=== PATIENT | male | born 1955 | race American Indian/Alaskan Native ===

== ENCOUNTER → 2019-01-04 | Outpatient (CLI) | payer OTHER, MEDICARE ==
[~2019-01-04] MED LIST: ACET250; CIPR500 PO; CITA20 PO; ERGO50000 PO; ESCI10; FROVA PO; HYDACE5 PO; NABU500; NAPR500 PO; NEOPOLHCSU AD; NORT10; NORT25 PO; OMEP20ER; OXYACE5T PO; OXYACE7.5T; PENVK500 PO; PROM25 PO; SERT100; SIMV10 PO; TAMS.4ER PO; TEMA30; TOPI100 PO
== END | disposition home or self-care (01) ==
LOC: LAB 12:50 → LAB SHORT 12:50
DX: R73.9 Hyperglycemia, unspecified (principal)
CPT/HCPCS: 83036

== ENCOUNTER → 2019-02-15 | Outpatient (CLI) | payer OTHER, MEDICARE ==
[2019-02-15 16:47] LABS: Adenovirus F 40/41 Not Detected (NOT DETECT); Astrovirus Not Detected (NOT DETECT); Campylobacter Sp Not Detected (NOT DETECT); Cryptosporidium Not Detected (NOT DETECT); Cyclospora Cayetanensis Not Detected (NOT DETECT); E. Coli O157 Not Detected (NOT DETECT); Entamoeba Histolytica Not Detected (NOT DETECT); Enteroaggregative E. coli-EAEC Not Detected (NOT DETECT); Enteropathogenic E. coli-EPEC Not Detected (NOT DETECT); Enterotoxigenic E. coli-ETEC Not Detected (NOT DETECT); Giardia Lamblia Not Detected (NOT DETECT); Norovirus GI/GII Not Detected (NOT DETECT); Plesiomonas Shigelloides Not Detected (NOT DETECT); Rotavirus A Detected (NOT DETECT); Salmonella Sp Not Detected (NOT DETECT); Sapovirus Not Detected (NOT DETECT); Shiga Toxin-prod E. coli-STEC Not Detected (NOT DETECT); Shigella/Enteroin E. coli-EIEC Not Detected (NOT DETECT); Vibrio Cholerae Not Detected (NOT DETECT); Vibrio Sp Not Detected (NOT DETECT); Yersinia Enterocolitica Not Detected (NOT DETECT)
== END | disposition home or self-care (01) ==
LOC: LAB SHORT 12:39 → LAB 12:39
PROVIDERS: Internal Medicine Hematology & Oncology
DX: R19.7 Diarrhea, unspecified (principal)
CPT/HCPCS: 87507

== ENCOUNTER → 2019-05-24 | Outpatient (CLI) | payer OTHER, MEDICARE ==
[2019-05-24 13:25] LABS: Alanine Aminotransfer (ALT/SGP 22 U/L (12-78); Albumin, Blood 3.7 g/dL (3.4-5.0); Albumin/Globulin Ratio 0.9 (0.8-1.8); Alk Phos 133 U/L (50-136); Anion Gap 8 mmol/L (6-16); Aspartate Aminotrans (AST/SGOT 16 U/L (12-37); Bilirubin, Total 0.5 mg/dL (0.1-1.0); Blood Urea Nitrogen 7 mg/dL (8-24); Bun/Creatinine Ratio 9.8 (12.0-20.0); CO2, Blood 26 mmol/L (21-32); Calcium, Blood 9.2 mg/dL (8.5-10.1); Chloride, Blood 106 mmol/L (98-108); Creatinine, Blood 0.72 mg/dL (0.60-1.20); Globulin, Blood 3.9 g/dL (2.2-4.0); Glomerular Filtration Rate >60 (60-); Glucose, Blood 167 mg/dL (70-99); Potassium, Blood 3.8 mmol/L (3.5-5.5); Sodium, Blood 140 mmol/L (136-145); Total Protein, Blood 7.6 g/dL (6.4-8.2)
== END | disposition home or self-care (01) ==
LOC: LAB 12:46 → LAB SHORT 12:46
PROVIDERS: Otolaryngology
DX: R51 Headache (principal)
CPT/HCPCS: 80053

== ENCOUNTER → 2019-11-23 | Outpatient (CLI) | payer OTHER, MEDICARE ==
[2019-11-23 15:17] LABS: BASOPHILS ABSOLUTE AUTO 0.16 K/mm3 (0.00-0.23); BASOPHILS PERCENT AUTO 1 % (0-2); EOSINOPHILS ABSOLUTE AUTO 0.49 K/mm3 (0.00-0.68); EOSINOPHILS PERCENT AUTO 3 % (0-6); Hematocrit 46.2 % (37.0-53.0); Hemoglobin 15.6 g/dL (13.5-17.5); IMMATURE GRAN ABSOLUTE AUTO 0.07 K/mm3 (0.00-0.10); IMMATURE GRAN PERCENT AUTO 0 % (0-1); LYMPHOCYTES ABSOLUTE AUTO 3.07 K/mm3 (0.84-5.20); LYMPHOCYTES PERCENT AUTO 17 % (21-46); MONOCYTES ABSOLUTE AUTO 1.18 K/mm3 (0.16-1.47); MONOCYTES PERCENT AUTO 7 % (4-13); Mean Corpuscular HGB 29.1 pg (26.0-34.0); Mean Corpuscular HGB Conc 33.8 g/dL (31.5-36.5); Mean Corpuscular Volume 86 fL (80-100); NEUTROPHILS PERCENT AUTO 73 % (41-73); Platelet Count 339 K/mm3 (150-400); RDW Coefficient Variation 14.8 % (11.7-14.2); RDW Standard Deviation 46.9 fL (35.1-46.3); Red Blood Cell Count 5.37 M/mm3 (4.30-5.90); White Blood Cell Count 18.07 K/mm3 (4.00-11.30)
[2019-11-23 15:47] LABS: Valproic Acid 13.2 ug/mL (50.0-100.0)
[2019-11-23 15:48] LABS: Alanine Aminotransfer (ALT/SGP 31 U/L (12-78); Albumin, Blood 3.7 g/dL (3.4-5.0); Alk Phos 149 U/L (50-136); Anion Gap 7 mmol/L (6-16); Aspartate Aminotrans (AST/SGOT 23 U/L (12-37); Bilirubin, Total 0.5 mg/dL (0.1-1.0); Blood Urea Nitrogen 12 mg/dL (8-24); Bun/Creatinine Ratio 15.3 (12.0-20.0); CO2, Blood 24 mmol/L (21-32); Calcium, Blood 8.9 mg/dL (8.5-10.1); Chloride, Blood 105 mmol/L (98-108); Creatinine, Blood 0.78 mg/dL (0.60-1.20); Globulin, Blood 3.6 g/dL (2.2-4.0); Glomerular Filtration Rate >60 (60-); Glucose, Blood 221 mg/dL (70-99); Potassium, Blood 3.7 mmol/L (3.5-5.5); Sodium, Blood 136 mmol/L (136-145); Total Protein, Blood 7.3 g/dL (6.4-8.2)
== END ==
LOC: LAB SHORT 11:20 → LAB 11:20
PROVIDERS: Physician Assistant
DX: C85.98 Non-Hodgkin lymphoma, unspecified, lymph nodes of multiple sites (principal); G44.221 Chronic tension-type headache, intractable; G43.909 Migraine, unspecified, not intractable, without status migrainosus; F43.9 Reaction to severe stress, unspecified; G47.30 Sleep apnea, unspecified; G60.9 Hereditary and idiopathic neuropathy, unspecified; M54.2 Cervicalgia; Z79.899 Other long term (current) drug therapy
CPT/HCPCS: 80053; 80164; 85025

== ENCOUNTER → 2020-02-03 | Outpatient (CLI) | payer OTHER, MEDICARE ==
[2020-02-03 13:58] LABS: BASOPHILS ABSOLUTE AUTO 0.15 K/mm3 (0.00-0.23); BASOPHILS PERCENT AUTO 1 % (0-2); EOSINOPHILS ABSOLUTE AUTO 0.32 K/mm3 (0.00-0.68); EOSINOPHILS PERCENT AUTO 2 % (0-6); Hematocrit 48.2 % (37.0-53.0); Hemoglobin 16.4 g/dL (13.5-17.5); IMMATURE GRAN ABSOLUTE AUTO 0.04 K/mm3 (0.00-0.10); IMMATURE GRAN PERCENT AUTO 0 % (0-1); LYMPHOCYTES ABSOLUTE AUTO 5.77 K/mm3 (0.84-5.20); LYMPHOCYTES PERCENT AUTO 40 % (21-46); MONOCYTES ABSOLUTE AUTO 0.82 K/mm3 (0.16-1.47); MONOCYTES PERCENT AUTO 6 % (4-13); Mean Corpuscular HGB 28.9 pg (26.0-34.0); Mean Corpuscular Volume 85 fL (80-100); Mean Platelet Volume 11.1 fL (9.1-12.4); NEUTROPHILS ABSOLUTE AUTO 7.52 K/mm3 (1.96-9.15); NEUTROPHILS PERCENT AUTO 51 % (41-73); Platelet Count 362 K/mm3 (150-400); RDW Coefficient Variation 14.5 % (11.7-14.2); RDW Standard Deviation 44.6 fL (35.1-46.3); Red Blood Cell Count 5.68 M/mm3 (4.30-5.90); White Blood Cell Count 14.62 K/mm3 (4.00-11.30)
== END | disposition home or self-care (01) ==
LOC: LAB SHORT 11:30 → LAB 11:30
PROVIDERS: Internal Medicine Hematology & Oncology
DX: D75.1 Secondary polycythemia (principal)
CPT/HCPCS: 85025

== ENCOUNTER 2020-06-08 14:02 | Emergency (ER) | payer OTHER, MEDICARE ==
[~2020-06-08] VITALS: Ht 182.9 cm; Wt 95.2 kg
[~2020-06-08 14:02] MED LIST changes: +Citalopram HBr40 MG PO; +IMITREX100 MG PO; +NORTRIPTYLINE H50 MG PO; +OMEP20ER PO; +OXYCODONE-ACET1 EAC3 PO; +Simvastatin20 MG PO; +TAMSULOSIN HCL0.4 M1 PO; +Temazepam30 MG PO
[2020-06-08 14:44] LABS: BASOPHILS ABSOLUTE AUTO 0.13 K/mm3 (0.00-0.23); BASOPHILS PERCENT AUTO 1 % (0-2); EOSINOPHILS ABSOLUTE AUTO 0.26 K/mm3 (0.00-0.68); EOSINOPHILS PERCENT AUTO 2 % (0-6); Hematocrit 48.7 % (37.0-53.0); Hemoglobin 16.3 g/dL (13.5-17.5); IMMATURE GRAN ABSOLUTE AUTO 0.04 K/mm3 (0.00-0.10); IMMATURE GRAN PERCENT AUTO 0 % (0-1); LYMPHOCYTES ABSOLUTE AUTO 5.57 K/mm3 (0.84-5.20); LYMPHOCYTES PERCENT AUTO 33 % (21-46); MONOCYTES ABSOLUTE AUTO 0.95 K/mm3 (0.16-1.47); MONOCYTES PERCENT AUTO 6 % (4-13); Mean Corpuscular HGB 28.2 pg (26.0-34.0); Mean Corpuscular HGB Conc 33.5 g/dL (31.5-36.5); Mean Corpuscular Volume 84 fL (80-100); Mean Platelet Volume 11.9 fL (9.1-12.4); NEUTROPHILS ABSOLUTE AUTO 10.17 K/mm3 (1.96-9.15); NEUTROPHILS PERCENT AUTO 60 % (41-73); Platelet Count 299 K/mm3 (150-400); RDW Coefficient Variation 14.2 % (11.7-14.2); RDW Standard Deviation 43.8 fL (35.1-46.3); Red Blood Cell Count 5.77 M/mm3 (4.30-5.90); White Blood Cell Count 17.12 K/mm3 (4.00-11.30)
[2020-06-08 14:52] LABS: Base Excess Venous -2.8 mmol/L; Bicarbonate Venous 21.6 mmol/L (24.0-30.0); PCO2 Venous 44.8 mmHg (38-42); PO2 Venous 49.6 mmHg (38-42); pH Blood Venous 7.32 (7.34-7.37)
[2020-06-08 15:05] LABS: Alanine Aminotransfer (ALT/SGP 19 U/L (12-78); Albumin, Blood 3.7 g/dL (3.4-5.0); Albumin/Globulin Ratio 0.9 (0.8-1.8); Alk Phos 198 U/L (50-136); Anion Gap 8 mmol/L (6-16); Aspartate Aminotrans (AST/SGOT 11 U/L (12-37); Beta-hydroxybutyrate 1.5 mg/dL (0.2-2.8); Bilirubin, Total 0.4 mg/dL (0.1-1.0); Blood Urea Nitrogen 11 mg/dL (8-24); Bun/Creatinine Ratio 17.7 (12.0-20.0); CO2, Blood 24 mmol/L (21-32); Calcium, Blood 9.4 mg/dL (8.5-10.1); Chloride, Blood 101 mmol/L (98-108); Creatinine, Blood 0.62 mg/dL (0.60-1.20); Globulin, Blood 3.9 g/dL (2.2-4.0); Glomerular Filtration Rate >60 (60-); Glucose, Blood 576 mg/dL (70-99); Potassium, Blood 4.1 mmol/L (3.5-5.5); Sodium, Blood 133 mmol/L (136-145); Total Protein, Blood 7.6 g/dL (6.4-8.2)
[2020-06-08 15:51] LABS: Source, Urine Clean Catch
[2020-06-08 16:03] LABS: Appearance, Urine Clear (Clear); Bilirubin, Urine Neg (Neg); Blood, Urine Neg (Neg); Color, Urine Yellow (P-Yellow); Glucose Qualitative, Urine 4+ (Neg); Ketones, Urine Neg (Neg); Leukocyte Esterase, Urine Neg (Neg); Nitrite, Urine Neg (Neg); Protein, Urine Neg (Neg); Urobilinogen, Urine NORM (Normal)
[2020-06-08] MEDS ORDERED: METF500 PO (18:34)
== END 2020-06-08 18:35 | disposition home or self-care (01) ==
LOC: ER 14:02
PROVIDERS: Emergency Medicine
DX: E11.9 Type 2 diabetes mellitus without complications (principal); I10 Essential (primary) hypertension; E78.5 Hyperlipidemia, unspecified; F17.210 Nicotine dependence, cigarettes, uncomplicated; Z88.6 Allergy status to analgesic agent; Z88.5 Allergy status to narcotic agent; Z88.8 Allergy status to other drugs, medicaments and biological substances; Z79.899 Other long term (current) drug therapy
CPT/HCPCS: 36415; 80053; 81003; 82010; 82803; 82947; 85025; 99283

== ENCOUNTER → 2020-10-09 | Outpatient (CLI) | payer OTHER, MEDICARE ==
[~2020-10-09] MED LIST changes: +ACET250 PO; +FLAGYL500 M2 PO; +METF500 PO
[2020-10-09 15:44] LABS: BASOPHILS ABSOLUTE AUTO 0.17 K/mm3 (0.00-0.23); BASOPHILS PERCENT AUTO 1 % (0-2); EOSINOPHILS ABSOLUTE AUTO 1.36 K/mm3 (0.00-0.68); EOSINOPHILS PERCENT AUTO 7 % (0-6); Hematocrit 48.5 % (37.0-53.0); IMMATURE GRAN ABSOLUTE AUTO 0.03 K/mm3 (0.00-0.10); IMMATURE GRAN PERCENT AUTO 0 % (0-1); LYMPHOCYTES ABSOLUTE AUTO 6.77 K/mm3 (0.84-5.20); LYMPHOCYTES PERCENT AUTO 36 % (21-46); MONOCYTES ABSOLUTE AUTO 1.07 K/mm3 (0.16-1.47); MONOCYTES PERCENT AUTO 6 % (4-13); Mean Corpuscular HGB 28.4 pg (26.0-34.0); Mean Corpuscular Volume 86 fL (80-100); Mean Platelet Volume 11.3 fL (9.1-12.4); NEUTROPHILS PERCENT AUTO 50 % (41-73); Platelet Count 377 K/mm3 (150-400); RDW Coefficient Variation 14.9 % (11.7-14.2); RDW Standard Deviation 47.5 fL (35.1-46.3); Red Blood Cell Count 5.63 M/mm3 (4.30-5.90)
== END ==
LOC: LAB 15:37 → LAB SHORT 15:37
PROVIDERS: Internal Medicine Hematology & Oncology
DX: C83.07 Small cell B-cell lymphoma, spleen (principal); C82.83 Other types of follicular lymphoma, intra-abdominal lymph nodes; R74.8 Abnormal levels of other serum enzymes; I10 Essential (primary) hypertension
CPT/HCPCS: 85025

== ENCOUNTER 2020-12-24 08:37 | Day surgery (SDC) | payer OTHER, MEDICARE ==
[~2020-12-24] VITALS: Ht 182.9 cm; Wt 101.3 kg
[~2020-12-24 08:37] MED LIST changes: -ACET250 PO; -FLAGYL500 M2 PO
[2020-12-24] MEDS ORDERED: METF500 PO (09:01)
[2020-12-24] MEDS ORDERED: ACET250 PO (09:02)
[2020-12-24] MEDS ORDERED: FLAGYL500 M2 PO (09:02)
== END 2020-12-24 11:01 | disposition home or self-care (01) ==
LOC: ORSCSDS 08:37
PROVIDERS: Internal Medicine Gastroenterology
PROC: 0DB58ZX Excision of Esophagus, Via Natural or Artificial Opening Endoscopic, Diagnostic (ICD-10-PCS; principal; 2020-12-24 10:00)
PROC: 0DB78ZX Excision of Stomach, Pylorus, Via Natural or Artificial Opening Endoscopic, Diagnostic (ICD-10-PCS; principal; 2020-12-24 10:00)
PROC: 0DJD8ZZ Inspection of Lower Intestinal Tract, Via Natural or Artificial Opening Endoscopic (ICD-10-PCS; principal; 2020-12-24 10:00)
DX: K21.9 Gastro-esophageal reflux disease without esophagitis (principal); K22.70 Barrett's esophagus without dysplasia; K29.70 Gastritis, unspecified, without bleeding; Z12.11 Encounter for screening for malignant neoplasm of colon; Z86.010 Personal history of colon polyps; K57.30 Diverticulosis of large intestine without perforation or abscess without bleeding; F17.210 Nicotine dependence, cigarettes, uncomplicated; I10 Essential (primary) hypertension; E11.9 Type 2 diabetes mellitus without complications; G47.33 Obstructive sleep apnea (adult) (pediatric); Z79.899 Other long term (current) drug therapy
CPT/HCPCS: 43239; G0105; 82947; 87081; 88305; 88342; J2704; J7120

== ENCOUNTER → 2022-04-28 | Outpatient (CLI) | payer OTHER, MEDICARE ==
[~2022-04-28] MED LIST changes: +ACET250 PO; +FLAGYL500 M2 PO
[2022-04-28 11:38] LABS: U Amphetamine Screen Not Detected; U Barbituate Screen Not Detected; U Benzodiazapine Screen DETECTED; U Cannabinoids Screen DETECTED; U Methamphetamine Screen Not Detected; U Oxycodone Screen DETECTED
[2022-04-28 11:39] LABS: U Buprenorphine Screen Not Detected; U Cocaine Screen Not Detected; U Methadone Screen Not Detected; U Opiates Screen Not Detected; U Phencyclidine Screen Not Detected; U Propoxyphene Screen Not Detected
== END | disposition home or self-care (01) ==
LOC: LAB SHORT 09:36
PROVIDERS: Internal Medicine Hematology & Oncology
DX: Z51.81 Encounter for therapeutic drug level monitoring (principal); Z79.899 Other long term (current) drug therapy

== ENCOUNTER → 2022-05-29 | Outpatient (CLI) | payer OTHER, MEDICARE ==
[2022-05-29 11:56] LABS: U Amphetamine Screen Not Detected; U Barbituate Screen Not Detected; U Benzodiazapine Screen DETECTED; U Buprenorphine Screen Not Detected; U Cannabinoids Screen DETECTED; U Cocaine Screen Not Detected; U Methadone Screen Not Detected; U Methamphetamine Screen Not Detected; U Opiates Screen Not Detected; U Oxycodone Screen DETECTED; U Phencyclidine Screen Not Detected; U Propoxyphene Screen Not Detected
[2022-06-02 19:08] LABS: CARBOXY-THC 64 (.)
== END | disposition home or self-care (01) ==
LOC: LAB SHORT 08:54 → LAB 08:54
PROVIDERS: Internal Medicine Hematology & Oncology
DX: Z51.81 Encounter for therapeutic drug level monitoring (principal); Z79.899 Other long term (current) drug therapy

== ENCOUNTER → 2022-07-01 | Outpatient (CLI) | payer OTHER, MEDICARE ==
[2022-07-01 18:37] LABS: U Cannabinoids Screen DETECTED
[2022-07-01 18:38] LABS: U Benzodiazapine Screen DETECTED; U Oxycodone Screen DETECTED
[2022-07-01 18:40] LABS: U Amphetamine Screen Not Detected; U Barbituate Screen Not Detected; U Buprenorphine Screen Not Detected; U Cocaine Screen Not Detected; U Methadone Screen Not Detected; U Methamphetamine Screen Not Detected; U Opiates Screen Not Detected; U Phencyclidine Screen Not Detected; U Propoxyphene Screen Not Detected
[2022-07-07 07:12] LABS: AMITRIPTYLINE Negative (Cutoff=100); CLOMIPRAMINE Negative (Cutoff=100); CYCLOBENZAPRINE Negative (Cutoff=100); DESIPRAMINE Negative (Cutoff=100); DOXEPIN Negative (Cutoff=100); IMIPRAMINE Negative (Cutoff=100); NORDOXEPIN Negative (Cutoff=100); NORTRIPTYLINE Positive (.); NORTRIPTYLINE CONF 278 ng/mL (Cutoff=100); PROTRIPTYLINE Negative (Cutoff=100); TRICYCLIC ANTIDEP Positive ng/mL (Cutoff=100); TRIMIPRAMINE Negative (Cutoff=100)
[2022-07-08 14:09] LABS: CARBOXY-THC 148 (.)
== END ==
LOC: LAB SHORT 15:04 → LAB 15:04
PROVIDERS: Internal Medicine Hematology & Oncology
DX: Z79.899 Other long term (current) drug therapy (principal)
CPT/HCPCS: G0480; G0481

== ENCOUNTER → 2022-08-01 | Outpatient (CLI) | payer OTHER, MEDICARE ==
[2022-08-01 12:46] LABS: U Amphetamine Screen Not Detected; U Barbituate Screen Not Detected; U Methamphetamine Screen Not Detected
[2022-08-01 12:47] LABS: U Benzodiazapine Screen DETECTED; U Buprenorphine Screen Not Detected; U Cannabinoids Screen Not Detected; U Cocaine Screen Not Detected; U Methadone Screen Not Detected; U Opiates Screen Not Detected; U Oxycodone Screen DETECTED; U Phencyclidine Screen Not Detected; U Propoxyphene Screen Not Detected
== END | disposition home or self-care (01) ==
LOC: LAB SHORT 10:34 → LAB 10:34
PROVIDERS: Internal Medicine Hematology & Oncology
DX: Z51.81 Encounter for therapeutic drug level monitoring (principal); Z79.899 Other long term (current) drug therapy

== ENCOUNTER → 2022-11-27 | Outpatient (CLI) | payer OTHER, MEDICARE ==
[~2022-11-27] MED LIST changes: +IBUP800 PO; +LIDO700A20 TOP
[2022-11-27 12:35] LABS: U Amphetamine Screen Not Detected; U Barbituate Screen Not Detected; U Benzodiazapine Screen DETECTED; U Cocaine Screen Not Detected; U Methadone Screen Not Detected; U Methamphetamine Screen Not Detected; U Opiates Screen Not Detected; U Phencyclidine Screen Not Detected
[2022-11-27 12:36] LABS: U Buprenorphine Screen Not Detected; U Cannabinoids Screen DETECTED; U Oxycodone Screen DETECTED; U Propoxyphene Screen Not Detected
== END | disposition home or self-care (01) ==
LOC: LAB 10:01 → LAB SHORT 10:01
PROVIDERS: Internal Medicine Hematology & Oncology
DX: Z51.81 Encounter for therapeutic drug level monitoring (principal); Z79.899 Other long term (current) drug therapy

== ENCOUNTER → 2023-02-26 | Outpatient (CLI) | payer OTHER, MEDICARE ==
[2023-02-26 19:17] LABS: U Amphetamine Screen Not Detected; U Barbituate Screen Not Detected; U Benzodiazapine Screen DETECTED; U Buprenorphine Screen Not Detected; U Cannabinoids Screen DETECTED; U Cocaine Screen Not Detected; U Methadone Screen Not Detected; U Methamphetamine Screen Not Detected; U Opiates Screen Not Detected; U Oxycodone Screen DETECTED; U Phencyclidine Screen Not Detected; U Propoxyphene Screen Not Detected
== END | disposition home or self-care (01) ==
LOC: LAB SHORT 10:17 → LAB 10:17
PROVIDERS: Internal Medicine Hematology & Oncology
DX: Z51.81 Encounter for therapeutic drug level monitoring (principal); Z79.899 Other long term (current) drug therapy

== ENCOUNTER → 2023-03-30 | Outpatient (CLI) | payer OTHER, MEDICARE ==
[2023-03-30 12:15] LABS: U Amphetamine Screen Not Detected; U Barbituate Screen Not Detected; U Benzodiazapine Screen DETECTED; U Buprenorphine Screen Not Detected; U Cannabinoids Screen DETECTED; U Cocaine Screen Not Detected; U Methadone Screen Not Detected; U Methamphetamine Screen Not Detected; U Opiates Screen Not Detected; U Oxycodone Screen DETECTED; U Phencyclidine Screen Not Detected; U Propoxyphene Screen Not Detected
== END | disposition home or self-care (01) ==
LOC: LAB SHORT 09:50
PROVIDERS: Internal Medicine Hematology & Oncology
DX: Z51.81 Encounter for therapeutic drug level monitoring (principal); Z79.899 Other long term (current) drug therapy

== ENCOUNTER → 2023-06-29 | Outpatient (CLI) | payer OTHER, MEDICARE ==
[2023-06-29 14:46] LABS: U Amphetamine Screen Not Detected; U Barbituate Screen Not Detected; U Benzodiazapine Screen DETECTED; U Buprenorphine Screen Not Detected; U Cannabinoids Screen DETECTED; U Cocaine Screen Not Detected; U Methadone Screen Not Detected; U Methamphetamine Screen Not Detected; U Opiates Screen Not Detected; U Oxycodone Screen DETECTED; U Phencyclidine Screen Not Detected; U Propoxyphene Screen Not Detected
[2023-07-03 12:10] LABS: CARBOXY-THC 57 (.)
[2023-07-06 03:08] LABS: AMITRIPTYLINE Negative (Cutoff=100); CLOMIPRAMINE Negative (Cutoff=100); CYCLOBENZAPRINE Negative (Cutoff=100); DESIPRAMINE Negative (Cutoff=100); DOXEPIN Negative (Cutoff=100); IMIPRAMINE Negative (Cutoff=100); NORDOXEPIN Negative (Cutoff=100); NORTRIPTYLINE Positive (.); NORTRIPTYLINE CONF 165 ng/mL (Cutoff=100); PROTRIPTYLINE Negative (Cutoff=100); TRICYCLIC ANTIDEP Positive ng/mL (Cutoff=100); TRIMIPRAMINE Negative (Cutoff=100)
== END ==
LOC: LAB SHORT 09:40 → LAB 09:40
PROVIDERS: Internal Medicine Hematology & Oncology
DX: Z51.81 Encounter for therapeutic drug level monitoring (principal); Z79.899 Other long term (current) drug therapy
CPT/HCPCS: G0480; G0481

== ENCOUNTER → 2023-08-03 | Outpatient (CLI) | payer OTHER, MEDICARE ==
[2023-08-03 11:44] LABS: U Amphetamine Screen Not Detected; U Barbituate Screen Not Detected; U Benzodiazapine Screen Not Detected; U Buprenorphine Screen Not Detected; U Cannabinoids Screen Not Detected; U Cocaine Screen Not Detected; U Methadone Screen Not Detected; U Methamphetamine Screen Not Detected; U Opiates Screen Not Detected; U Oxycodone Screen DETECTED; U Phencyclidine Screen Not Detected
== END ==
LOC: LAB 10:28 → LAB SHORT 10:28
PROVIDERS: Internal Medicine Hematology & Oncology
DX: Z79.899 Other long term (current) drug therapy (principal)

== ENCOUNTER → 2023-08-31 | Outpatient (CLI) | payer OTHER, MEDICARE ==
[2023-08-31 11:29] LABS: U Amphetamine Screen Not Detected; U Barbituate Screen Not Detected; U Benzodiazapine Screen Not Detected; U Buprenorphine Screen Not Detected; U Cannabinoids Screen DETECTED; U Cocaine Screen Not Detected; U Methadone Screen Not Detected; U Methamphetamine Screen Not Detected; U Opiates Screen Not Detected; U Oxycodone Screen DETECTED; U Phencyclidine Screen Not Detected
== END | disposition home or self-care (01) ==
LOC: LAB SHORT 10:10 → LAB 10:10
PROVIDERS: Internal Medicine Hematology & Oncology
DX: C83.07 Small cell B-cell lymphoma, spleen (principal); Z79.899 Other long term (current) drug therapy

== ENCOUNTER → 2023-09-30 | Outpatient (CLI) | payer OTHER, MEDICARE ==
[2023-09-30 12:09] LABS: U Amphetamine Screen Not Detected; U Barbituate Screen Not Detected; U Benzodiazapine Screen Not Detected; U Cannabinoids Screen DETECTED; U Cocaine Screen Not Detected; U Methadone Screen Not Detected; U Methamphetamine Screen Not Detected; U Opiates Screen Not Detected; U Oxycodone Screen DETECTED; U Phencyclidine Screen Not Detected
[2023-09-30 12:10] LABS: U Buprenorphine Screen Not Detected
== END | disposition home or self-care (01) ==
LOC: LAB 10:37 → LAB SHORT 10:37
PROVIDERS: Internal Medicine Hematology & Oncology
DX: Z51.81 Encounter for therapeutic drug level monitoring (principal); Z79.899 Other long term (current) drug therapy

== ENCOUNTER → 2023-12-28 | Outpatient (CLI) | payer OTHER, MEDICARE ==
[2023-12-28 20:04] LABS: U Amphetamine Screen Not Detected; U Barbituate Screen Not Detected; U Benzodiazapine Screen Not Detected; U Buprenorphine Screen Not Detected; U Cannabinoids Screen DETECTED; U Cocaine Screen Not Detected; U Methadone Screen Not Detected; U Methamphetamine Screen Not Detected; U Opiates Screen Not Detected; U Oxycodone Screen DETECTED; U Phencyclidine Screen Not Detected
== END | disposition home or self-care (01) ==
LOC: LAB SHORT 10:26 → LAB 10:26
PROVIDERS: Internal Medicine Hematology & Oncology
DX: C83.07 Small cell B-cell lymphoma, spleen (principal); G89.29 Other chronic pain; Z79.899 Other long term (current) drug therapy

== ENCOUNTER → 2024-05-18 | Outpatient (CLI) | payer OTHER, MEDICARE ==
[2024-05-18 14:42] LABS: U Amphetamine Screen Not Detected; U Barbituate Screen Not Detected; U Benzodiazapine Screen Not Detected; U Buprenorphine Screen Not Detected; U Cannabinoids Screen Not Detected; U Cocaine Screen Not Detected; U Methadone Screen Not Detected; U Methamphetamine Screen Not Detected; U Opiates Screen Not Detected; U Oxycodone Screen DETECTED; U Phencyclidine Screen Not Detected
== END | disposition home or self-care (01) ==
LOC: LAB 09:25 → LAB SHORT 09:25
PROVIDERS: Internal Medicine Hematology & Oncology
DX: Z51.81 Encounter for therapeutic drug level monitoring (principal); Z79.899 Other long term (current) drug therapy

== ENCOUNTER → 2024-08-30 | Outpatient (CLI) | payer MEDICARE, OTHER ==
[2024-08-30 14:49] LABS: U Amphetamine Screen Not Detected; U Barbituate Screen Not Detected; U Benzodiazapine Screen Not Detected; U Buprenorphine Screen Not Detected; U Cannabinoids Screen Not Detected; U Cocaine Screen Not Detected; U Methadone Screen Not Detected; U Methamphetamine Screen Not Detected; U Opiates Screen Not Detected; U Oxycodone Screen DETECTED; U Phencyclidine Screen Not Detected
== END | disposition home or self-care (01) ==
LOC: LAB SHORT 09:50 → LAB 09:50
PROVIDERS: Internal Medicine Hematology & Oncology
DX: Z51.81 Encounter for therapeutic drug level monitoring (principal); Z79.899 Other long term (current) drug therapy

== ENCOUNTER → 2024-09-30 | Outpatient (CLI) | payer MEDICARE, OTHER ==
[2024-09-30 15:07] LABS: U Amphetamine Screen Not Detected; U Barbituate Screen Not Detected; U Benzodiazapine Screen Not Detected; U Buprenorphine Screen Not Detected; U Cannabinoids Screen Not Detected; U Cocaine Screen Not Detected; U Methadone Screen Not Detected; U Methamphetamine Screen Not Detected; U Opiates Screen Not Detected; U Oxycodone Screen Not Detected; U Phencyclidine Screen Not Detected
== END | disposition home or self-care (01) ==
LOC: LAB SHORT 13:29 → LAB 13:29
PROVIDERS: Internal Medicine Hematology & Oncology
DX: Z51.81 Encounter for therapeutic drug level monitoring (principal); Z79.899 Other long term (current) drug therapy

== ENCOUNTER → 2024-11-04 | Outpatient (CLI) | payer MEDICARE, OTHER ==
[2024-11-04 14:49] LABS: U Amphetamine Screen Not Detected; U Barbituate Screen Not Detected; U Benzodiazapine Screen Not Detected; U Buprenorphine Screen Not Detected; U Cannabinoids Screen DETECTED; U Cocaine Screen Not Detected; U Methadone Screen Not Detected; U Methamphetamine Screen Not Detected; U Opiates Screen Not Detected; U Oxycodone Screen DETECTED; U Phencyclidine Screen Not Detected
== END ==
LOC: LAB 13:08 → LAB SHORT 13:08
PROVIDERS: Internal Medicine Hematology & Oncology
DX: M54.16 Radiculopathy, lumbar region (principal); Z79.899 Other long term (current) drug therapy

== ENCOUNTER → 2025-01-05 | Outpatient (CLI) | payer MEDICARE, OTHER ==
[2025-01-05 14:39] LABS: U Amphetamine Screen Not Detected; U Barbituate Screen Not Detected; U Benzodiazapine Screen Not Detected; U Buprenorphine Screen Not Detected; U Cannabinoids Screen DETECTED; U Cocaine Screen Not Detected; U Methadone Screen Not Detected; U Methamphetamine Screen Not Detected; U Opiates Screen Not Detected; U Oxycodone Screen DETECTED; U Phencyclidine Screen Not Detected
== END ==
LOC: LAB SHORT 13:14 → LAB 13:14
PROVIDERS: Internal Medicine Hematology & Oncology
DX: C82.83 Other types of follicular lymphoma, intra-abdominal lymph nodes (principal); G89.29 Other chronic pain; Z79.899 Other long term (current) drug therapy

== ENCOUNTER → 2025-06-08 | Outpatient (CLI) | payer OTHER, MEDICARE ==
[2025-06-08 11:55] LABS: U Amphetamine Screen Not Detected; U Barbituate Screen Not Detected; U Benzodiazapine Screen Not Detected; U Buprenorphine Screen Not Detected; U Cocaine Screen Not Detected; U Methadone Screen Not Detected; U Methamphetamine Screen Not Detected; U Opiates Screen Not Detected; U Oxycodone Screen DETECTED; U Phencyclidine Screen Not Detected
[2025-06-08 11:56] LABS: U Cannabinoids Screen Not Detected
== END | disposition home or self-care (01) ==
LOC: LAB SHORT 09:30 → LAB 09:30
PROVIDERS: Internal Medicine Hematology & Oncology
DX: M54.16 Radiculopathy, lumbar region (principal); Z79.899 Other long term (current) drug therapy